=== PATIENT | female | born 1995 | race Caucasian/White ===

== ENCOUNTER 2021-04-03 13:54 | Emergency (ER) | payer BC ==
[2021-04-03 14:09] LABS: BILIRUBIN,URINE NEGATIVE (NEGATIVE); GLUCOSE, URINE (UA) NEGATIVE (NEGATIVE); KETONES,URINE (UA) NEGATIVE (NEGATIVE); LEUKOCYTE ESTERASE, URINE MODERATE (NEGATIVE); NITRITE,URINE NEGATIVE (NEGATIVE); OCCULT BLOOD,URINE LARGE (NEGATIVE); PROTEIN,URINE 100 mg/dL (NEGATIVE); UROBILINOGEN,URINE 0.2 (NORMAL) E.U./dL (NORMAL)
[2021-04-03] MEDS ORDERED: PHENAZOPYRIDINE 100 MG TABLET PO STA (14:13)
[2021-04-03] MEDS ORDERED: cefTRIAXone 1 GM VIAL IVP STA (14:13)
[2021-04-03 14:17] LABS: CLARITY,URINE CLOUDY (CLEAR); HCG UR QUAL NEGATIVE
[2021-04-03 14:20] LABS: WBC,URINE >25 /HPF (0-5)
[2021-04-03 14:21] LABS: BACTERIA,URINE Few /HPF (None Seen); SQUAMOUS EPITHELIAL CELL,UR FEW Squamous (<= Few); WBC CLUMPS,URINE PRESENT
[2021-04-03 14:31] LABS: BASOPHILS # (AUTO) 0.1 10^3/uL (0.0-0.1); BASOPHILS % (AUTO) 0.4 %; EOSINOPHILS # (AUTO) 0.1 10^3/uL (0.0-0.7); EOSINOPHILS % (AUTO) 0.4 %; HCT - HEMATOCRIT 39.2 % (37.0-47.0); HGB - HEMOGLOBIN 13.6 g/dL (12.0-16.0); LYMPHOCYTES # (AUTO) 1.6 10^3/uL (1.5-3.5); LYMPHOCYTES % (AUTO) 10.4 %; MEAN CORPUSCULAR HEMOGLOBIN 31.8 pg (27.0-31.0); MEAN CORPUSCULAR HGB CONC 34.7 g/dL (32.0-36.0); MEAN CORPUSCULAR VOLUME 91.6 fL (81.0-99.0); MEAN PLATELET VOLUME 9.3 fL (7.9-10.8); MONOCYTES # (AUTO) 0.9 10^3/uL (0.0-1.0); MONOCYTES % (AUTO) 5.7 %; NEUTROPHILS # (AUTO) 13.1 10^3/uL (1.5-6.6); NEUTROPHILS % (AUTO) 82.7 %; PLT - PLATELET COUNT 262 10^3/uL (130-450); RED BLOOD COUNT 4.28 10^6/uL (4.20-5.40); RED CELL DISTRIBUTION WIDTH 11.4 % (12.0-15.0); WHITE BLOOD COUNT 15.8 x10^3/uL (4.8-10.8)
--- NOTE | 2021-04-03 14:32 | ED Physician Documentation ---
History of Present Illness - Stated complaint Stated Complaint: FEMALE - Chief complaint Chief Complaint: UTI - History obtained from History obtained from: Patient - History of Present Illness Timing: Yesterday Pain level max: 7 Pain level now: 5 - Additonal information Additional information: 25-year-old female presents to the emergency department with dysuria for the past 24 hours. Worsening today. She states blood in her urine today. She had chills today as well. Left flank pain. [place] like she was going to pass out at work today. Had a near syncopal event. She states that she had a near syncopal event when she saw blood once in the past. She thinks that it may have been related to seeing the blood in her urine today. Denies any possibility of . Worse with urination, nothing makes it better. Currently not on any medications. Review of Systems Ten Systems: 10 systems reviewed and negative Constitutional: reports: Chills. denies: Fever Nose: denies: Rhinorrhea / runny nose Throat: denies: Sore throat Cardiac: denies: Chest pain / pressure Respiratory: denies: Cough, Wheezing GI: denies: Abdominal Pain, Nausea, Vomiting, Diarrhea : reports: Dysuria, Frequency, Hesitancy, Hematuria. denies: Now EGA Skin: denies: Rash Musculoskeletal: reports: Back pain (L flank). denies: Neck pain Neurologic: denies: Headache PD PAST MEDICAL HISTORY - Past Medical History Past Medical History: No - Past Surgical History Past Surgical History: No - Present Medications Home Medications: Ambulatory Orders Medication Instructions Recorded Confirmed Amoxicillin 1 tab PO DAILY 04/03/21 04/03/21 Cefdinir 300 mg PO BID #28 cap 04/03/21 - Allergies Allergies/Adverse Reactions: Allergies Allergy/AdvReac Type Severity Reaction Status Date / Time No Known Drug Allergies Allergy Verified 04/03/21 13:59 - Living Situation Living Situation: reports: With family Living Arrangement: reports: At home - Family History Family history: reports: Non contributory PD ED PE NORMAL - Vitals Vital signs reviewed: Yes - General General: Alert and oriented X 3, No acute distress - HEENT HEENT: Moist mucous membranes - Neck Neck: Supple, no meningeal sign - Cardiac Cardiac: RRR, Strong equal pulses - Respiratory Respiratory: No respiratory distress, Clear bilaterally - Abdomen Abdomen: Soft, Non tender, Non distended - Back Back: No spinal TTP, Other (L CVAT) - Derm Derm: Warm and dry - Extremities Extremities: No edema, No calf tenderness / cord - Neuro Neuro: Alert and oriented X 3 - Psych Psych: Normal mood, Normal affect Results - Vitals Vitals: Vital Signs - 24 hr 04/03/21 15:24 Temperature 98.9 C H Heart Rate 106 H Respiratory 14 Rate Blood Pressure 112/57 L O2 Saturation 99 Oxygen O2 Source Room air - EKG (time done) 1507 Rate: Rate (enter#) (104) Rhythm: Sinus tachycardia [place]: Normal Intervals: Normal [place] QRS: Normal Ischemia: Normal ST segments - Labs Labs: Laboratory Tests 04/03/21 04/03/21 04/03/21 14:03 14:25 14:25 WBC 15.8 H RBC 4.28 Hgb 13.6 Hct 39.2 MCV 91.6 MCH 31.8 H MCHC 34.7 RDW 11.4 L Plt Count 262 MPV 9.3 Neut # (Auto) 13.1 H Lymph # (Auto) 1.6 [place] # (Auto) 0.9 Eos # (Auto) 0.1 Baso # (Auto) 0.1 Absolute Nucleated RBC 0.00 Nucleated RBC % 0.0 Sodium 140 Potassium 3.4 L Chloride 105 Carbon Dioxide 26 Anion Gap 9.0 BUN 14 Creatinine 0.7 Estimated GFR (MDRD) 104 Glucose 109 H Calcium 9.2 Total Bilirubin 1.4 H AST 16 ALT 15 Alkaline Phosphatase 54 Total Protein 7.6 Albumin 4.9 Globulin 2.7 Albumin/Globulin Ratio 1.8 Lipase 22 Urine Color LT RED Urine Clarity CLOUDY Urine pH 7.0 Ur Specific [place] 1.015 Urine Protein 100 H Urine Glucose (UA) NEGATIVE Urine Ketones NEGATIVE Urine Occult Blood LARGE H Urine Nitrite NEGATIVE Urine Bilirubin NEGATIVE Urine Urobilinogen 0.2 (NORMAL) Ur Leukocyte Esterase MODERATE H Urine RBC 6-10 H Urine WBC >25 H Urine WBC Clumps PRESENT Ur Squamous Epith Cells FEW Squamous Urine Bacteria Few Urine HCG, Qual NEGATIVE - Rads (name of study) CT abd/pelvis Radiology: Prelim report reviewed, EMP read contemporaneously, See rad report PD MEDICAL DECISION MAKING - ED course Complexity details: reviewed results, re-evaluated patient, considered differential, d/w patient ED course: 25-year-old female presents to the emergency department with symptoms of dysuria, hematuria, left flank pain and chills. Concern for possible pyelonephritis versus infected ureteral stone. Near syncopal event secondary to pain versus visualization of blood in her urine. Given Rocephin here. Patient appears to have cystitis on CT scan. Clinically still concern for pyelonephriti s, we will place her on cefdinir for home. Patient counseled regarding signs and symptoms for which I believe and urgent re-evaluation would be necessary. Patient with good understanding of and agreement to plan and is comfortable going home at this time Pain well controlled here. This document was made in part using voice recognition software. While efforts are made to proofread this document, sound alike and grammatical errors may occur. IMPRESSION: 1. Concentric bladder wall thickening and mucosal enhancement consistent with a cystitis. Recommend correlation with urinalysis. 2. No hydronephrosis or definite CT evidence of pyelonephritis. No perinephric or intrarenal abscess collections. 3. Mild segmental wall thickening of the transverse and descending colon suggestive of a mild colitis, with evaluation limited by incomplete distention. Departure - Departure Disposition: 01 Home, Self Care Clinical Impression: Pyelonephritis, Near syncope Condition: Good Instructions: ED Kidney Infec Female Follow-Up: your,doctor in 1 week if not better [Other] Prescriptions: Cefdinir 300 mg PO BID #28 cap Comments: Take all antibiotics until gone. Return if you worsen. Follow-up with your doctor for further care. Drink plenty of fluids. Discharge Date/Time: 04/03/21 15:35
[2021-04-03] MEDS ORDERED: IOVERSOL 320 100 ML VIAL IVP ONE ×2 (14:41→15:03)
[2021-04-03 14:45] LABS: ALBUMIN 4.9 g/dL (3.2-5.5); ALBUMIN/GLOBULIN RATIO 1.8 (1.0-2.2); BILIRUBIN,TOTAL 1.4 mg/dL (0.2-1.0); CALCIUM 9.2 mg/dL (8.5-10.3); CREATININE 0.7 mg/dL (0.4-1.0); POTASSIUM 3.4 mmol/L (3.5-5.0); TOTAL PROTEIN 7.6 g/dL (6.7-8.2)
[2021-04-03] MEDS ORDERED: KETOROLAC 30 MG/ML VIAL IVP STA (15:09)
[2021-04-03 15:31] VITALS: BP 112/57
--- NOTE | 2021-04-03 15:31 | CT Report ---
PROCEDURE: Abdomen/Pelvis W INDICATIONS: L flank pain, hematuria, chills, near syncope CONTRAST: IV CONTRAST: Optiray 320 ml: 100 PO CONTRAST: *NO PO CONTRAST TECHNIQUE: After the administration of intravenous contrast, 5 mm thick sections acquired from the diaphragms to the symphysis. 5 mm thick coronal and sagittal reformats were acquired. For radiation dose reducti on, the following was used: automated exposure control, adjustment of mA and/or kV according to geetha ent size. COMPARISON: None. FINDINGS: Image quality: Excellent. ABDOMEN: Lung bases: Lung bases are clear. Heart size is normal. Solid organs: There is mild focal fatty image aeration in the anterior left hepatic lobe along the fa lciform ligament. Gallbladder appears within normal limits without calcified gallstones. Biliary syst em is non dilated. The spleen is normal in size. Pancreas enhances normally without peripancreatic f at stranding or fluid collections. No adrenal nodules. Kidneys demonstrate no hydronephrosis. There is symmetric renal enhancement bilaterally without a definite striated nephrogram. No perinephric or intrarenal fluid collections. No perinephric stranding. Peritoneum and bowel: Small bowel loops demonstrate normal wall thickness and caliber. The appendix is normal in appearance. Colonic diverticulosis is present without acute diverticulitis. There is adj acent mild segmental wall thickening involving the transverse and descending colon versus artifact fr om nondistention. No free fluid or air. Nodes and vessels: No retroperitoneal or mesenteric adenopathy by size criteria. Aorta and inferior vena cava are normal in size. Miscellaneous: No ventral hernias. PELVIS: Genitourinary: There is concentric bladder wall thickening and mucosal enhancement. An IUD appears i n appropriate position within the uterus. Miscellaneous: No inguinal hernias or adenopathy. Bones: No suspicious bony lesions. No vertebral body compression fractures. IMPRESSION: 1. Concentric bladder wall thickening and mucosal enhancement consistent with a cystitis. Recommend c orrelation with urinalysis. 2. No hydronephrosis or definite CT evidence of pyelonephritis. No perinephric or intrarenal abscess collections. 3. Mild segmental wall thickening of the transverse and descending colon suggestive of a mild colitis , with evaluation limited by incomplete distention. Reviewed by: Dilshad Theodore MD on 04/03/2021 3:30 PM PDT Approved by: Dilshad Theodore MD on 04/03/2021 3:30 PM [facility] Station ID: [id number]
== END 2021-04-03 15:35 | disposition home or self-care (01) ==
LOC: ED 13:54
DX: N12 Tubulo-interstitial nephritis, not specified as acute or chronic (principal); R55 Syncope and collapse; R00.0 Tachycardia, unspecified
CPT/HCPCS: 36415; 74177; 80053; 81001; 81025; 83690; 85025; 93005; 99284; A9270; Q9967